=== PATIENT | male | born 1985 | race Caucasian/White ===

== ENCOUNTER 2022-04-09 20:28 | Emergency (ER) | payer OTHER, SELFPAY ==
[2022-04-09 20:30] VITALS: BP 141/101; PULSE 82; RESP 16; TEMP 36.3; O2SAT 100
--- NOTE | 2022-04-09 20:44 | ED.WOUNDLAC ---
HPI - Wound/Laceration General Chief Complaint: Wound/Laceration Stated Complaint: face laceration Time Seen by Provider: 04/09/22 20:35 History of Present Illness HPI narrative: Patient is a 36-year-old male here for evaluation of laceration sustained to his forehead about 30 minutes prior to arrival. Patient states that he was coming in from outside when the screen door struck him on the face. He denies loss of consciousness or current headache. Patient cleaned out the wound with soap and water at home. Bleeding controlled prior to arrival. His last tetanus shot was 5 years ago when he had sutures in his finger. Related Data Allergies Allergy/AdvReac Type Severity Reaction Status Date / Time No Known Allergies Allergy Mild Verified 04/09/22 20:32 Review of Systems Review of Systems: Gen.: Denies fevers or chills Eyes: Denies eye pain or visual change ENT: Denies congestion Respiratory: Denies shortness of breath or cough CV: Denies chest pain or palpitations GI: Denies abdominal pain nausea, emesis or diarrhea denies burning, urgency, frequency or hematuria Musculoskeletal: Denies back pain or muscle pain Neuro: Denies numbness, tingling, weakness or focal weakness Skin: Reports laceration Except as documented, all other systems reviewed and negative Exam Narrative: Gen: Alert, oriented, no acute distress Eyes: EOMI, no icterus Pulm: Respirations even and unlabored, symmetric thorax expansion, no audible stridor or visible cyanosis GI: No distension, no voluntary/involuntary guarding Neuro: AOx4, moves all extremities without apparent difficulty or weakness, follows commands Skin: Patient has a 1 cm superficial linear laceration superior to and running linear with his right eyebrow. No irregularities, hemostasis controlled prior to arrival Psych: Normal mood/affect, insight/judgement good, adequate fund of knowledge, recent/remote memory intact Course Vital Signs Vital signs: Vital Signs Temperature 97.4 F L 04/09/22 20:30 Pulse Rate 82 04/09/22 20:30 Respiratory Rate 16 04/09/22 20:30 Blood Pressure 141/101 H 04/09/22 20:30 Pulse Oximetry 100 04/09/22 20:30 Oxygen Delivery Room Air 04/09/22 20:30 Temperature 97.4 F L 04/09/22 20:30 Pulse Rate 82 04/09/22 20:30 Respiratory Rate 16 04/09/22 20:30 Blood Pressure 141/101 H 04/09/22 20:30 Pulse Oximetry 100 04/09/22 20:30 Oxygen Delivery Room Air 04/09/22 20:30 Procedures Laceration Laceration 1: ====== Skin Level ====== ====== Subcutaneous Layer ====== ====== Muscle Layer ====== ====== Tendon Layer ====== Dressing: Laceration was irrigated extensively with normal saline. Patient's laceration on the forehead above the right eyebrow was closed with skin glue with good approximation. MDM - Wound/Laceration MDM Narrative Medical decision making narrative: 36-year-old male here for evaluation of a laceration above his right eyebrow sustained about 30 minutes prior to arrival. Tetanus up-to-date. Patient with 1 cm linear laceration with no active bleeding. Good approximation obtained with skin glue. Discussed return precautions, patient voiced understanding. Discharge Plan Discharge Clinical Impression: Laceration Patient Disposition: Home, Self-Care Condition: Stable Instructions: Antibiotic Form, Laceration (ED) Additional Instructions: Please monitor the wound for signs of infection, including surrounding redness or increased drainage. The skin glue will likely flake off in the next several days. Please follow-up with your primary care provider next week. Return to the emergency department if you develop severe headache, you vomit, you have changes to vision, you pass out. Follow-up/Referrals: Jorge,Abram Rivera MD [Non-Staff] -
== END 2022-04-09 21:52 | disposition home or self-care (01) ==
PROVIDERS: Emergency Provider Emergency Medicine; PCP Internal Medicine
DX: S01.81XA Laceration without foreign body of other part of head, initial encounter (principal); W22.8XXA Striking against or struck by other objects, initial encounter
CPT/HCPCS: 12011; 99282